=== PATIENT | male | born 1965 | race Caucasian/White ===

== ENCOUNTER → 2018-11-12 | Outpatient (CLI) | payer OTHER ==
--- NOTE | 2018-11-12 08:44 | US ---
EXAMINATION TYPE: US abdomen complete DATE OF EXAM: 11/12/2018 COMPARISON: NONE CLINICAL HISTORY: R10.11 ruq pain. Pain and gassy. EXAM MEASUREMENTS: Liver Length: 13.8 cm Gallbladder Wall: .2 cm CBD: .3 cm Spleen: 9.5 cm Right Kidney: 10.4 x 4.1 x 3.8 cm Left Kidney: 9.5 x 5.0 x 5.1 cm Pancreas: wnl Liver: wnl Gallbladder: Echogenic focus measuring 2 mm suggesting a small polyp as there is no shadowing versus small nonshadowing patulous. Minimal biliary sludge.. Evidence for sonographic Lorenzo's sign: No CBD: wnl Spleen: wnl Right Kidney: wnl Left Kidney: wnl Upper IVC: wnl Abd Aorta: wnl The liver is homogenous. The intrahepatic portion of the IVC and proximal abdominal aorta are within normal limits. Common bile duct is unremarkable. The visualized portions of the pancreas are homoge nous. The spleen is unremarkable. Kidneys are symmetric and free of hydronephrosis. No renal lesio ns are seen. IMPRESSION: Minimal biliary sludge and 2 mm polyp versus small nonshadowing solitary calculus. No current sonogra phic evidence of acute cholecystitis.
== END | disposition home or self-care (01) ==
LOC: RADUSMAIN 08:01
PROVIDERS: ATTEND Internal Medicine
DX: R10.11 Right upper quadrant pain (principal)
CPT/HCPCS: 76700